=== PATIENT | female | born 1950 | race Hispanic/Latino ===

== ENCOUNTER 2020-04-11 10:00 | Outpatient (RCR) | payer MEDICARE | END 2020-04-18 | LOC: PT 10:00 | PROVIDERS: ATTEND Specialist | DX: S46.0 Injury of muscle(s) and tendon(s) of the rotator cuff of shoulder (principal); M62.81 Muscle weakness (generalized); M25.511 Pain in right shoulder; M25.611 Stiffness of right shoulder, not elsewhere classified | CPT/HCPCS: 97139 ==

== ENCOUNTER 2020-05-17 09:44 | Outpatient (RCR) | payer MEDICARE | END 2020-05-18 | LOC: PT 09:44 | PROVIDERS: ATTEND Specialist | DX: S46.0 Injury of muscle(s) and tendon(s) of the rotator cuff of shoulder (principal); M62.81 Muscle weakness (generalized); M25.511 Pain in right shoulder; M25.611 Stiffness of right shoulder, not elsewhere classified | CPT/HCPCS: 97139 ==

== ENCOUNTER 2020-05-30 10:00 | Outpatient (RCR) | payer MEDICARE | END 2020-06-18 | LOC: PT 10:00 | PROVIDERS: ATTEND Specialist | DX: S46.0 Injury of muscle(s) and tendon(s) of the rotator cuff of shoulder (principal) ==

== ENCOUNTER 2024-03-03 09:29 | Emergency (ER) | payer MEDICARE ==
[~2024-03-03] VITALS: Ht 162.6 cm; Wt 63.5 kg
[2024-03-03 09:37] VITALS: TEMP 98.9
[2024-03-03] MEDS: TETANUS/DIPHTHERIA TOX ADULT 0.5 ML SYR IM ONE (10:11)
[2024-03-03 10:55] VITALS: PULSE 74; RESP 18; O2SAT 97
== END 2024-03-03 10:57 | disposition home or self-care (01) ==
LOC: FSED 09:32
DX: S80.01XA Contusion of right knee, initial encounter (principal); S90.111A Contusion of right great toe without damage to nail, initial encounter; W01.0XXA Fall on same level from slipping, tripping and stumbling without subsequent striking against object, initial encounter; Y93.01 Activity, walking, marching and hiking; Y92.89 Other specified places as the place of occurrence of the external cause; I10 Essential (primary) hypertension; E11.9 Type 2 diabetes mellitus without complications; E78.5 Hyperlipidemia, unspecified; I25.10 Atherosclerotic heart disease of native coronary artery without angina pectoris; Z95.5 Presence of coronary angioplasty implant and graft
CPT/HCPCS: 90714; 99283

== ENCOUNTER → 2024-10-14 | Outpatient (REF) | payer MEDICARE ==
[2024-10-12 08:55] LABS: BASOPHILS # (AUTO) 0.1 (0.0-0.1); EOSINOPHILS # (AUTO) 0.5 (0.0-0.4); EOSINOPHILS % 4.8 % (0.0-6.0); HEMATOCRIT 34.8 % (34.2-44.1); HEMOGLOBIN 11.3 g/dL (12.0-16.0); LYMPHOCYTES # (AUTO) 2.6 (1.0-3.2); LYMPHOCYTES % 27.1 % (18.0-39.1); MEAN CORPUSCULAR HEMOGLOBIN 28.5 pg (28-32); MEAN CORPUSCULAR HGB CONC 32.5 g/dL (31-35); MEAN CORPUSCULAR VOLUME 87.9 fL (81-99); MONOCYTES # (AUTO) 0.5 (0.2-0.8); MONOCYTES % 5.5 % (4.4-11.3); NEUTROPHILS % 61.2 % (38.7-80.0); PLATELET COUNT 306 x10e3/uL (140-360); RED BLOOD COUNT 3.96 x10e6/uL (3.6-5.1); RED CELL DISTRIBUTION WIDTH 12.7 % (11.7-14.4); WHITE BLOOD COUNT 9.75 x10e3/uL (4.8-10.8)
[2024-10-12 09:33] LABS: ANION GAP 16.8 mmol/L (8-16); CALCIUM 9.3 mg/dL (8.4-10.2); CREATININE, SERUM 1.23 mg/dL (0.57-1.11); POTASSIUM 3.8 mmol/L (3.5-5.1)
[~2024-10-14] MED LIST: ASPIRIN81 MG PO; CEFDINIR300 MG PO; GABAPENTIN100 MG PO; GLIMEPIRIDE2 MG PO; IBUPROFEN600 MG PO; LIPITOR10 MG PO; NASACORT16.9 ML; NITROGLYCERIN0.4 MG SL; OFLOXACIN5 ML RIGHT EAR; OZEMPIC2 MG/0.75 SC; PANTOPRAZOLE SO40 MG PO; TYLENOL325 MG PO; VALSARTAN-HCTZ1 EAC4 PO
== END ==
LOC: RAD 08:26 → EDSTATUS 10-20 07:00
PROVIDERS: ATTEND Orthopaedic Surgery
DX: Z01.818 Encounter for other preprocedural examination (principal); M75.122 Complete rotator cuff tear or rupture of left shoulder, not specified as traumatic; M75.42 Impingement syndrome of left shoulder
CPT/HCPCS: 36415; 71046; 80048; 85025; 93005

== ENCOUNTER 2024-12-25 10:20 | Emergency (ER) | payer MEDICARE ==
[~2024-12-25] VITALS: Ht 160 cm; Wt 65.0 kg
[~2024-12-25 10:20] MED LIST changes: -CEFDINIR300 MG PO; -IBUPROFEN600 MG PO; -NASACORT16.9 ML; -OFLOXACIN5 ML RIGHT EAR; -TYLENOL325 MG PO
[2024-12-25] MEDS ORDERED: NASACORT16.9 ML (11:23)
[2024-12-25] MEDS ORDERED: IBUPROFEN600 MG PO (11:23)
[2024-12-25] MEDS ORDERED: OFLOXACIN5 ML RIGHT EAR (11:23)
[2024-12-25] MEDS ORDERED: TYLENOL325 MG PO (11:23)
[2024-12-25] MEDS ORDERED: CEFDINIR300 MG PO (11:23)
[2024-12-25] MEDS: CEFTRIAXONE 1 GM VIAL IM ONE (11:56)
[2024-12-25] MEDS: IBUPROFEN 200 MG TAB PO ONE (11:56)
[2024-12-25 12:02] VITALS: PULSE 85; RESP 16; TEMP 97.3; O2SAT 97
== END 2024-12-25 12:02 | disposition home or self-care (01) ==
LOC: FSED 10:23
DX: H66.91 Otitis media, unspecified, right ear (principal); I10 Essential (primary) hypertension; E11.9 Type 2 diabetes mellitus without complications; E78.5 Hyperlipidemia, unspecified; I25.10 Atherosclerotic heart disease of native coronary artery without angina pectoris; Z95.5 Presence of coronary angioplasty implant and graft
CPT/HCPCS: 96372; 99283; J0696